=== PATIENT | female | born 1970 | race Caucasian/White ===

== ENCOUNTER → 2016-02-14 | Outpatient (CLI) | payer OTHER ==
[~2016-02-14] MED LIST: THROMBIN (RECOMBINANT) 5,000 UNIT VIAL TP ONE
--- NOTE | 2016-02-14 13:47 | MA ---
Diagnostic Right Digital Mammogram History: Post ultrasound breast biopsy.Evaluate marker placement. Comparison: 12/01/15 . Technique: Two views of the right breast. Findings: An ultrasound placed clip is present in the appropriate position in the breast. There is no significant postprocedural hematoma. Impression: Excellent post procedural mammogram . Recommendation: Assuming a benign diagnosis, then a six-month followup right mammogram is recommended to reestablish a baseline.
--- NOTE | 2016-02-14 14:59 | US ---
Vacuum-Assisted Ultrasound-Guided Core Biopsy Right Breast History: Nodules 1030 radial, 4 cm from the nipple Crosscutting Measure #226: Current tobacco user: no. Technique: Following informed consent, the nodule within the 1030 position of the right breast was l ocalized from a superolateral approach, with the patient's arm at her side. The skin was marked and t hen prepped and draped in sterile fashion. Following local anesthesia with 1% lidocaine, lidocaine mi xed with epinephrine was injected deeper within the breast tissue. A small skin сергей was placed on t he skin surface, through which the 9-gauge Suros vacuum-assisted core biopsy needle was advanced with ultrasound guidance to the deep margin of the mass. Numerous core biopsy samples were obtained throu gh the mass. A Suros titanium clip was then placed in the biopsy bed. Marcaine was then injected at t he biopsy site for prolonged analgesia. Hemostasis was obtained, a sterile pressure dressing was appl ied and the patient sent for a postprocedural mammogram to document clip placement and to observe for postprocedural hematoma formation. She was then discharged without complication, with instructions t o call us with any thoughts, complications or concerns. Impression: 1. Successful ultrasound-guided core biopsy of nodule right breast 10:30 position, 4 cm from the nipp le. 2. Successful deployment of Suros titanium clip positioned immediately adjacent to the biopsy site.
== END ==
LOC: FIMAGING 11:42
PROVIDERS: ATTEND Surgery
PROC: 0HBT3ZX Excision of Right Breast, Percutaneous Approach, Diagnostic (ICD-10-PCS; principal; 2016-02-14)
DX: N63 Unspecified lump in breast (principal)
CPT/HCPCS: 19083; G0206

== ENCOUNTER → 2016-09-23 | Outpatient (CLI) | payer OTHER | LOC: FIMAGING 10:47 | PROVIDERS: ATTEND Obstetrics & Gynecology | DX: Z12.31 Encounter for screening mammogram for malignant neoplasm of breast (principal) | CPT/HCPCS: G0202 ==